=== PATIENT | male | born 1995 | race Hispanic/Latino ===

== ENCOUNTER 2021-03-17 18:19 | Emergency (ER) | payer OTHER, SELFPAY ==
--- OUTSIDE RECORDS SUMMARY | 2021-03-17 18:22 | XMS REPORT | Continuity of Care Document ---
:1995 Author Organization [facility] t Address [facility] [place] [address] Care Team Providers Name Role Phone Unavailable Unavailable Unavailable Problems Condition Condition Condition Status Onset Resolution Last Treating Co mments Source Name Details Category Date Date Treatment Clinician Date Herpes Herpes Problem [facility] mention of mention of l complicati complicati Ou tpati on on ent Clinics Asthma Asthma Problem [facility] exacerbati exacerbati l on on Outpati ent Clinics Allergies, Adverse Reactions, Alerts This patient has no known allergies or adverse reactions. Medications Ordered Filled Start Stop Current Ordering Indication Dosage Frequency Signature Comments Components Source Medication Medication Date Date Medication? Clinician (SIG) Name Name Symbicort Symbicort Yes Prabhjot [address] [facility] Ventolin Ventolin Yes Prabhjot [address] [facility] HFA HFA [facility] Procedures This patient has no known procedures. Encounters Start End Encounter Admission Attending Care Care Encounter Source Date/Time Date/Time Type Type Clinicians Facility Department ID 2019-12-26 2019-12-26 [facility] [id number] [facility] 14:00:00 14:00:00 [facility] Family Medicine l Medicine Outpati ent Clinics 2019-12-25 2019-12-25 [facility] [id number] [facility] 08:30:00 08:30:00 Close[facility] Family Medicine l Medicine Outpati ent Clinics 2019-12-23 2019-12-23 [facility] [id number] [facility] 11:58:00 11:58:00 [facility] [employer] Family Medicine l Medicine Outpati ent Clinics 2019-07-10 2019-07-10 Outpatient Stevie Bran [id number] [facility] 10:47:00 10:47:00 [facility] 2018-11-04 2018-11-04 Outpatient Stevie Bran [id number] [facility] 10:45:00 10:45:00 [facility] ent Clinics Results This patient has no known results.
[2021-03-17] MEDS ORDERED: MAGNES/ALUMIN/SIMET 30ML UCUP ONE (23:20)
[2021-03-17] MEDS ORDERED: NA CHLORIDE 0.9% 1,000 ML ONE (23:20)
[2021-03-17] MEDS ORDERED: FAMOTIDINE 20 MG/2 ML VIAL IV ONE (23:20)
[2021-03-17] MEDS ORDERED: METOCLOPRAMIDE 10 MG/2mL INJ ONE (23:20)
[2021-03-17] MEDS ORDERED: LIDOCAINE VISCOUS 2% SOLN 15 ML UDC ONE (23:20)
[2021-03-17 23:22] LABS: Absolute Lymphocytes (CBC) 1.8 K/uL (0.7-4.9); Basophils % 0.5 % (0-1.3); Hematocrit 44.1 % (39.6-49.0); MPV 8.5 fL (7.6-11.3); RBC Red Blood Cell Count 5.05 M/uL (4.33-5.43)
[2021-03-17 23:56] LABS: ALT/SGPT 26 U/L (12-78); AST/SGOT 47 U/L (15-37); Albumin 4.1 g/dL (3.4-5.0); Alkaline Phosphatase 57 U/L (45-117); BUN Blood Urea Nitrogen 12 mg/dL (7-18); Bicarbonate 26 mmol/L (21-32); Bilirubin Total 0.5 mg/dL (0.2-1.0); Glucose Level 112 mg/dL (74-106); Potassium 3.4 mmol/L (3.5-5.1); Sodium Level 138 mmol/L (136-145)
[2021-03-18] MEDS ORDERED: CHLORPROMAZINE 25 MG TAB PO ONE (00:02)
--- NOTE | 2021-03-18 00:34 | EDPHYS ---
Physician Documentation [facility] Name: Chuy Barreto Age: 25 yrs Sex: Male : 1995 Arrival Date: 03/17/2021 Time: 18:22 Bed DIS2 Private MD: ED Physician Grant Sanchez HPI: 03/17 22:38 This 25 yrs old Male presents to ER via Ambulatory with complaints of hiccups daylin x3 days. 22:38 The patient or guardian reports cough, described as mild. daylin Historical: - Allergies: 20:43 No Known Allergies; lp1 - Home Meds: 20:43 None [Active]; lp1 - PMHx: 20:43 None; lp1 - PSHx: 20:43 None; lp1 - Immunization history:: Adult Immunizations up to date, Client reports having NOT received the Covid vaccine. - Social history:: Smoking status: Patient denies any tobacco usage or history of. ROS: 22:38 Constitutional: Negative for fever, chills, and weight loss, Eyes: Negative for injury, daylin pain, redness, and discharge, ENT: Negative for injury, pain, and discharge, Neck: Negative for injury, pain, and swelling, Cardiovascular: Negative for chest pain, palpitations, and edema, Abdomen/GI: Negative for abdominal pain, nausea, vomiting, diarrhea, and constipation, Back: Negative for injury and pain, : Negative for injury, bleeding, discharge, and swelling, MS/Extremity: Negative for injury and deformity, Skin: Negative for injury, rash, and discoloration, Neuro: Negative for headache, weakness, numbness, tingling, and seizure, Psych: Negative for depression, anxiety, suicide ideation, homicidal ideation, and hallucinations, Allergy/Immunology: Negative for hives, rash, and allergies, Endocrine: Negative for neck swelling, polydipsia, polyuria, polyphagia, and marked weight changes, Hematologic/Lymphatic: Negative for swollen nodes, abnormal bleeding, and unusual bruising. 22:38 Respiratory: Positive for cough, with no reported sputum. Exam: 22:38 Constitutional: This is a well developed, well nourished patient who is awake, alert, daylin and in no acute distress. Head/Face: Normocephalic, atraumatic. Eyes: Pupils equal round and reactive to light, extra-ocular motions intact. Lids and lashes normal. Conjunctiva and sclera are non-icteric and not injected. Cornea within normal limits. Periorbital areas with no swelling, redness, or edema. ENT: Nares patent. No nasal discharge, no septal abnormalities noted. Tympanic membranes are normal and external auditory canals are clear. Oropharynx with no redness, swelling, or masses, exudates, or evidence of obstruction, uvula midline. Mucous membranes moist. Neck: Trachea midline, no thyromegaly or masses palpated, and no cervical lymphadenopathy. Supple, full range of motion without nuchal rigidity, or vertebral point tenderness. No Meningismus. Chest/axilla: Normal chest wall appearance and motion. Nontender with no deformity. No lesions are appreciated. Cardiovascular: Regular rate and rhythm with a normal S1 and S2. No gallops, murmurs, or rubs. Normal PMI, no JVD. No pulse deficits. Abdomen/GI: Soft, non-tender, with normal bowel sounds. No distension or tympany. No guarding or rebound. No evidence of tenderness throughout. Back: No spinal tenderness. No costovertebral tenderness. Full range of motion. Male : Normal genitalia with no discharge or lesions. Skin: Warm, dry with normal turgor. Normal color with no rashes, no lesions, and no evidence of cellulitis. MS/ Extremity: Pulses equal, no cyanosis. Neurovascular intact. Full, normal range of motion. Neuro: Awake and alert, GCS 15, oriented to person, place, time, and situation. Cranial nerves II-XII grossly intact. Motor strength 5/5 in all extremities. Sensory grossly intact. Cerebellar exam normal. Normal gait. Psych: Awake, alert, with orientation to person, place and time. Behavior, mood, and affect are within normal limits. 22:38 Respiratory: the patient does not display signs of respiratory distress, Respirations: normal, Breath sounds: are clear throughout. 22:38 Abdomen/GI: Exam negative for Vital Signs: 20:43 BP 108 / 66; Pulse 93; Resp 18; Temp 98.6; Pulse Ox 100% on R/A; Weight 73.48 kg (R); lp1 Height 5 ft. 6 in. (167.64 cm); Pain 01/13; 03/18 00:36 BP 112 / 70; Pulse 80; Resp 17; Temp 98.5; Pulse Ox 100% on R/A; [facility] 03/17 20:43 Body Mass Index 26.15 (73.48 kg, 167.64 cm) lp1 MDM: 03/17 22:02 Patient medically screened. [facility] 23:30 Differential diagnosis: bronchitis, flu, URI, costochondritis, esophagitis, gastritis. [facility] Antibiotic administration: The patient is discharged and will get outpatient antibiotics, Zithromax. HEART Score: History: Slightly Suspicious (0), Age: < or = 45 years (0), Risk Factors: No Risk Factors Known (0). The patient's deep vein thrombosis risk score was calculated as follows: Total Score: 0. This patient was found to be at low risk for a deep vein thrombosis by using the Well's assessment criteria. The patient's pulmonary embolism risk score was calculated as follows: Total Score: 0-2 points. This patient was found to be at low risk for a pulmonary embolism by using the Well's assessment criteria. CHAN Risk Score: TOTAL SCORE = 0. Data reviewed: vital signs, nurses notes, lab test result(s), radiologic studies. Data interpreted: cardiac monitor technician: rate is 93 beats/min, rhythm is regular, Pulse oximetry: on room air is 100 %. Test interpretation: by ED physician or midlevel provider: plain radiologic studies. Counseling: I had a detailed discussion with the patient and/or guardian regarding: the historical points, exam findings, and any diagnostic results supporting the discharge/admit diagnosis, lab results, radiology results, the need for outpatient follow up, for definitive care, a family practitioner. 03/17 22:37 Order name: CBC with Diff; Complete Time: 23:26 [facility] 03/17 22:37 Order name: Comprehensive Metabolic Panel; Complete Time: 00:33 [facility] 03/17 22:37 Order name: Chest Pa And Lat (2 Views) XRAY [facility] 03/17 23:27 Order name: CT Chest W/ Con [facility] 03/18 00:34 Order name: PO challenge: GATORADE GIVEN; Complete Time: 00:55 [facility] Administered Medications: 22:58 Drug: NS 0.9% 1000 ml Route: IV; Rate: 1 bolus; Site: left antecubital; [facility] 03/18 00:39 Follow up: IV Status: Completed infusion [facility] 03/17 22:58 Drug: GI Cocktail without - (Maalox Suspension 30 ml, Lidocaine Liquid 2 % 15 ch4 ml) Route: PO; 03/18 00:39 Follow up: Response: No adverse reaction ch4 03/17 22:58 Drug: Reglan (metoCLOPramide) 10 mg Route: IVP; Site: left antecubital; ch4 03/18 00:38 Follow up: Response: No adverse reaction [facility] 03/17 22:58 Drug: Pepcid (famotidine) 40 mg Route: IVP; Site: left antecubital; ch4 23:27 CANCELLED (Duplicate Order): chlorproMAZINE 50 mg IM once [facility] 03/18 00:17 Drug: Rocephin (cefTRIAXone) 1 grams Route: IV; Rate: per protocol; Site: left ch4 antecubital; 00:38 Follow up: Response: No adverse reaction; IV Status: Completed infusion ch4 00:17 Drug: Zithromax (azithromycin) 500 mg Route: PO; ch4 00:38 Follow up: Response: No adverse reaction ch4 00:23 Not Given (Physician Discretion): chlorproMAZINE 100 mg PO once ch4 Disposition Summary: 03/18/21 00:33 Discharge Ordered Location: Home daylin Problem: new daylin Symptoms: have improved daylin Condition: Stable daylin Diagnosis - Hiccough daylin - Other pneumonia, unspecified organism daylin - Hypokalemia daylin Followup: daylin - With: Private Physician - When: 2 - 3 days - Reason: Recheck today's complaints, Continuance of care, Re-evaluation by your physician Followup: daylin - With: Ubaldo Mcdonald MD - When: 2 - 3 days - Reason: Recheck today's complaints, Re-evaluation by your physician Discharge Instructions: - Discharge Summary Sheet daylin - Potassium Content of Foods daylin - Hiccups daylin - Cough, Adult, [id number] daylin - Community-Acquired Pneumonia, Adult daylin - Community-Acquired Pneumonia, Adult, [id number] daylin - Cough, Adult daylin - Hypokalemia daylin Forms: - Medication Reconciliation Form daylin - Thank You Letter daylin - Antibiotic Education daylin - Prescription Opioid Use daylin Prescriptions: - Maalox Maximum Strength - take 30 milliliter by ORAL route 3-4 times daily; 180 milliliter; Refills: 0, daylin Product Selection Permitted - Pepcid 20 mg Oral Tablet - take 1 tablet by ORAL route every 12 hours for 10 days; 20 tablet; Refills: 0, daylin Product Selection Permitted - Baclofen 10 mg Oral Tablet - take 1 tablet by ORAL route 3 times per day; 20 tablet; Refills: 0, Product [facility] Selection Permitted - Zithromax 500 mg Oral Tablet - take 1 tablet by ORAL route once daily for 5 days; 5 tablet; Refills: 0, daylin Product Selection Permitted Signatures: Dispatcher [employer] EDGrant Stevenson MD MD cha Pena, Laura, RN RN lp1 Aishwarya Cox RN RN ch4 Corrections: (The following items were deleted from the chart) 03/17 23:27 22:37 chlorproMAZINE 50 mg IM once ordered. daylin mao
--- NOTE | 2021-03-18 00:34 | ER ---
Nurse's Notes [facility] Name: Chuy Barreto Age: 25 yrs Sex: Male : 1995 Arrival Date: 03/17/2021 Time: 18:22 Bed DIS2 Private MD: Diagnosis: Hiccough;Other pneumonia, unspecified organism;Hypokalemia Presentation: 03/17 20:42 Chief complaint: Patient states: Hiccups x 3 days, reports previously has occurred and lp1 lasted about 5 days in June 2020 and just waited it out;. Coronavirus screen: Client denies travel out of the [place] in the last 14 days. At this time, the client does not indicate any symptoms associated with coronavirus-19. Ebola Screen: No symptoms or risks identified at this time. Risk Assessment: Do you want to hurt yourself or someone else? Patient reports no desire to harm self or others. Onset of symptoms was March 17, 2021. 20:42 Method Of Arrival: Ambulatory lp1 20:42 Acuity: TANA 4 lp1 20:43 Initial Sepsis Screen: Does the patient meet any 2 criteria? No. Patient's initial lp1 sepsis screen is negative. Does the patient have a suspected source of infection? No. Patient's initial sepsis screen is negative. Triage Assessment: 20:47 General: Appears uncomfortable, Behavior is appropriate for age. General: Actively lp1 hiccupping during triage . Neuro: No deficits noted. Respiratory: No deficits noted. Derm: Skin is pink, warm \T\ dry. Historical: - Allergies: 20:43 No Known Allergies; lp1 - Home Meds: 20:43 None [Active]; lp1 - PMHx: 20:43 None; lp1 - PSHx: 20:43 None; lp1 - Immunization history:: Adult Immunizations up to date, Client reports having NOT received the Covid vaccine. - Social history:: Smoking status: Patient denies any tobacco usage or history of. Screenin:46 Abuse screen: Denies threats or abuse. Denies injuries from another. lp1 Assessment: 03/18 00:37 General: Appears uncomfortable, Behavior is calm, cooperative. Pain: Denies pain. ch4 Neuro: No deficits noted. Cardiovascular: No deficits noted. Respiratory: Reports cough that is non-productive. GI: No deficits noted. : No deficits noted. EENT: No deficits noted. Derm: No deficits noted. Musculoskeletal: No deficits noted. Vital Signs: 03/17 20:43 BP 108 / 66; Pulse 93; Resp 18; Temp 98.6; Pulse Ox 100% on R/A; Weight 73.48 kg (R); lp1 Height 5 ft. 6 in. (167.64 cm); Pain 6/10; 03/18 00:36 BP 112 / 70; Pulse 80; Resp 17; Temp 98.5; Pulse Ox 100% on R/A; ch4 08 20:43 Body Mass Index 26.15 (73.48 kg, 167.64 cm) lp1 ED Course: 03/17 18:22 Patient arrived in ED. as 20:43 Triage completed. lp1 20:43 Arm band placed on. lp1 22:02 Grant Sanchez MD is Attending Physician. [facility] 22:06 Aishwarya Cox, JOSE is Primary Nurse. ch4 22:54 Chest Pa And Lat (2 Views) XRAY In Process Unspecified. EDMS 03/18 00:19 CT Chest W/ Con In Process Unspecified. EDMS 00:37 Inserted saline lock: 20 gauge in left antecubital area, using aseptic technique. ch4 00:37 IV discontinued, intact, bleeding controlled, No redness/swelling at site. Pressure ch4 dressing applied. 00:43 Ubaldo Mcdonald MD is Referral Physician. daylin Administered Medications: 03/17 22:58 Drug: NS 0.9% 1000 ml Route: IV; Rate: 1 bolus; Site: left antecubital; ch4 03/18 00:39 Follow up: IV Status: Completed infusion ch4 03/17 22:58 Drug: GI Cocktail without - (Maalox Suspension 30 ml, Lidocaine Liquid 2 % 15 ch4 ml) Route: PO; 03/18 00:39 Follow up: Response: No adverse reaction ch4 03/17 22:58 Drug: Reglan (metoCLOPramide) 10 mg Route: IVP; Site: left antecubital; ch4 03/18 00:38 Follow up: Response: No adverse reaction [facility] 03/17 22:58 Drug: Pepcid (famotidine) 40 mg Route: IVP; Site: left antecubital; ch4 23:27 CANCELLED (Duplicate Order): chlorproMAZINE 50 mg IM once daylin 0813 00:17 Drug: Rocephin (cefTRIAXone) 1 grams Route: IV; Rate: per protocol; Site: left ch4 antecubital; 00:38 Follow up: Response: No adverse reaction; IV Status: Completed infusion ch4 00:17 Drug: Zithromax (azithromycin) 500 mg Route: PO; ch4 00:38 Follow up: Response: No adverse reaction ch4 00:23 Not Given (Physician Discretion): chlorproMAZINE 100 mg PO once ch4 Outcome: 00:33 Discharge ordered by . daylin 00:55 Patient left the ED. ch4 Signatures: Dispatcher [employer] EDMS Grant Sanchez MD MD cha Martinez, Amelia as Pena, Laura, RN RN lp1 Aishwarya Cox RN RN ch4 Corrections: (The following items were deleted from the chart) 00:22 00:13 chlorproMAZINE 100 mg PO ch4 ch4
[2021-03-18] MEDS ORDERED: AZITHROMYCIN 250 MG TAB ONE (00:43)
[2021-03-18] MEDS ORDERED: CEFTRIAXONE/SWI 1gm 1 GM/10 ML SYR ONE (00:44)
[2021-03-18 01:27] VITALS: O2SAT 100
[2021-03-18 01:31] VITALS: BP 112/70; TEMP 98.5
--- NOTE | 2021-03-18 08:49 | RAD REPORT ---
EXAM DESCRIPTION: RAD - Chest Pa And Lat (2 Views) - 03/17/2021 10:54 pm CLINICAL HISTORY: COUGH Chest pain. COMPARISON: Thorax W/ Con dated 03/18/2021 FINDINGS: Mild medial right basilar lung opacity is present suggesting infiltrate/ pneumonia. The cindy ngs are otherwise clear. The heart is normal in size. No displaced fractures.
--- NOTE | 2021-03-18 21:08 | RAD REPORT ---
EXAM DESCRIPTION: CT CHEST WITH IV CONTRAST CLINICAL HISTORY: PAIN COMPARISON: None Available TECHNIQUE: Multiple helical axial tomographic images were obtained of the chest following administra tion of intravenous contrast. Coronal and sagittal reformatted images were obtained. This exam was performed according to our departmental dose-optimization program, which includes autom ated exposure control, adjustment of the mA and/or kV according to patient size and/or use of iterati ve reconstruction technique. FINDINGS: Thyroid gland: unremarkable. Axilla: unremarkable. Pulmonary arteries: Central pulmonary arteries appear patent. Peripheral pulmonary arteries are not w ell evaluated. Aorta: No evidence of aortic dissection or aneurysm. Mediastinum: There are a few mildly enlarged mediastinal and right hilar lymph nodes which are likely reactive. Heart: Heart is normal in size. Lungs/airways: Patchy consolidative changes in the right upper and lower lobes are present. Airways a re patent. Pleural spaces: No significant pleural effusion. No pneumothorax. Osseous: Unremarkable. Soft tissues: Unremarkable. Visualized abdomen: Unremarkable. IMPRESSION: Patchy consolidative changes in the right upper and lower lobes suggestive of pneumonia. Electronically signed by: Jose Alfredo Chacon MD 03/18/2021 12:32 AM CDT Due to temporary technical issues with the PACS/Fluency reporting system, reports are being signed by the in house radiologists without review as a courtesy to insure prompt reporting. The interpreting radiologist is fully responsible for the content of the report.
== END 2021-03-18 00:55 | disposition home or self-care (01) ==
LOC: ER 18:19
DX: U07.1 COVID-19 (principal); J18.8 Other pneumonia, unspecified organism; E87.6 Hypokalemia
CPT/HCPCS: 36415; 71046; 71260; 80053; 85025; 96361; 96365; 96375; 99283; J0696; J2765; J7030; Q9967; U0003